=== PATIENT | female | born 2000 | race Caucasian/White ===

== ENCOUNTER 2024-05-30 14:48 | Outpatient (AMB) | payer OTHER, SELFPAY ==
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
[2024-05-30 15:26] VITALS: BP 90/60; PULSE 99; RESP 12; TEMP 36.6; O2SAT 98; BMI 15.7
== END 2024-05-30 16:58 | disposition home or self-care (01) ==
PROVIDERS: PCP Family Medicine; Visit Provider Family Medicine
DX: M54.9 Dorsalgia, unspecified (principal); M25.562 Pain in left knee; M25.551 Pain in right hip; R63.6 Underweight; G47.9 Sleep disorder, unspecified; Z87.828 Personal history of other (healed) physical injury and trauma; F41.8 Other specified anxiety disorders
CPT/HCPCS: 99203

== ENCOUNTER 2024-06-26 16:05 | Outpatient (REF) | payer OTHER, SELFPAY ==
--- NOTE | ~2024-06-26 | XR_ITS ---
EXAMINATION: XR KNEE, LEFT CLINICAL INFORMATION: Left knee pain COMPARISON: None TECHNIQUE: Three views of the left knee. FINDINGS: No fracture or joint effusion. Alignment is anatomic. Joint spaces are maintained. No abnormal soft tissue calcification. XR/XR knee LT 3V IMPRESSION: Normal left knee radiographs. Electronically signed by: Dustin Lizarraga MD 07/10/2024 06:29 PM EDT
== END 2024-06-26 16:06 | disposition home or self-care (01) ==
LOC: HO.XRAY 16:05
PROVIDERS: PCP Family Medicine; Visit Provider Family Medicine
DX: M25.562 Pain in left knee (principal)
CPT/HCPCS: 73562

== ENCOUNTER 2024-06-29 09:54 | Outpatient (REF) | payer OTHER, SELFPAY ==
[2024-06-29 11:46] LABS: MANUAL DIFF FLAG NO
[2024-06-29 12:10] LABS: Basophils Absolute Auto 0.1 X10*3/uL (0.0-0.2); Basophils Percent Auto 0.7 % (0-2); Eosinophils Absolute Auto 0.1 X10*3/uL (0.0-0.4); Eosinophils Percent Auto 1.2 % (0-4); Hematocrit 42.8 % (37.0-47.0); Hemoglobin 14.6 g/dl (12.0-16.0); Imm Gran Abs Auto 0.01 X10*3/uL (0.00-0.03); Imm Gran Pct Auto 0.1 % (0.0-0.4); Lymphocytes Absolute Auto 2.6 X10*3/uL (1.2-4.9); Mean Corpuscular HGB Conc 34.1 g/dl (31.0-35.0); Mean Corpuscular Volume 90.9 fL (80.0-98.0); Mean Platelet Volume 9.7 fL (9.4-12.3); Monocytes Absolute Auto 0.7 X10*3/uL (0.1-1.2); Neutrophils Absolute Auto 3.8 x10*3/uL (2.0-8.3); Platelet Count 239 X10*3/uL (160-400); Red Blood Count 4.71 X10*6/uL (4.20-5.50); Red Cell Distribution Width 12.1 % (11.0-16.0); White Blood Count 7.3 X10*3/uL (4.8-10.8)
[2024-06-29 12:37] LABS: Alanine Aminotransferase 11 U/L (0-31); Albumin Level 4.6 g/dL (3.5-5.0); Alkaline Phosphatase 55 U/L (39-117); Anion Gap 12 (12-20); Aspartate Amino Transferase 19 U/L (5-31); Blood Urea Nitrogen 7 mg/dL (9-16); Calcium 9.5 mg/dL (8.4-10.2); Carbon Dioxide 24 mmol/L (22-29); Chloride 108 mmol/L (96-108); Cholesterol 158 mg/dL (<200); Estimated Glomerular Filt Rate > 60; Glucose Fasting 73 mg/dL (60-99); HDL Cholesterol 59 mg/dL (>40); LDL Cholesterol Calculated 89 mg/dL (<100); Potassium 3.5 mmol/L (3.3-5.1); Sodium 140 mmol/L (135-145); Total Protein 7.6 g/dL (6.5-8.0); Triglycerides 52 mg/dL (<150)
[2024-06-29 12:51] LABS: Erythrocyte Sedimentation Rate 2 MM/HR (0-20)
[2024-06-29 12:58] LABS: Syphilis Screen Nonreactive (Nonreactive)
[2024-06-29 12:59] LABS: TSH reflex Free T4 1.27 uIU/mL (0.32-4.0); Vitamin D 25-OH Total 28.8 ng/mL (>30)
[2024-06-29 13:03] LABS: HBS Num1 10.27 mIU/mL (0-7.99); HBsAGNum1 0.26 S/CO (0.00-0.99); HIV AB/AG Nonreactive (Nonreactive); HIV Num 1 0.05 S/CO (0.00-0.99); Hepatitis B Core Antibody Nonreactive (Nonreactive); Hepatitis B Surface Antigen Negative (Negative); ~HepC Num1 0.16 S/CO (0.00-0.79); ~Hepatitis C Antibody Nonreactive (Nonreactive)
[2024-06-29 13:12] LABS: Folate 15.8 ng/mL (> or = 4.0); Vitamin B12 565 pg/mL (200-900)
[2024-06-29 14:12] LABS: HBS Num2 10.01 mIU/mL (0-7.99); HBS Num3 10.08 mIU/mL (0-7.99); ~Hepatitis B Surface Antibody GRAYZONE (Nonreactive)
[2024-06-29 14:50] LABS: Appearance Urine Clear; Color Urine Yellow; Glucose Urine UA Negative (Negative); Leukocyte Esterase Urine Trace (Negative); Nitrite Urine Negative (Negative); Specific Gravity - Urine 1.015 (1.005-1.025); UMIC TRIGGER UA YES; Urine Blood Negative (Negative); Urine Ketones Trace mg/dL (Negative); Urine Protein Negative (Neg-Trace)
[2024-06-29 14:53] LABS: Bacteria Urine 1+ (None Seen); Hyaline Casts Urine 0-2 /LPF (0-2); RBC Urine 0-2 /HPF (0-2); WBC Urine 0-5 /HPF (0-5)
[2024-06-29 15:53] LABS: Creatinine Urine 93.01 mg/dL; Microalbum/Creatinine Ratio Ur 6.4 ug/mg cr (<30)
[2024-07-02 08:53] LABS: CRP High Sensitivity 0.2 mg/L
== END 2024-06-29 09:55 | disposition home or self-care (01) ==
LOC: HO.WFDLDS 09:54
PROVIDERS: Visit Provider Family Medicine
DX: Z00.00 Encounter for general adult medical examination without abnormal findings (principal); M54.9 Dorsalgia, unspecified; M25.562 Pain in left knee; Z11.3 Encounter for screening for infections with a predominantly sexual mode of transmission; E53.8 Deficiency of other specified B group vitamins; I10 Essential (primary) hypertension; E55.9 Vitamin D deficiency, unspecified
CPT/HCPCS: 36415; 80053; 80061; 81001; 82043; 82306; 82570; 82607; 82746; 84443; 85025; 85652; 86141; 86704; 86706; 86780; 86803; 87340; 87389

== ENCOUNTER 2024-07-19 15:00 | Outpatient (RCR) | payer OTHER, SELFPAY ==
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
--- NOTE | 2024-08-21 09:55 | MHC.PT.DC ---
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 Thank you for your referral.
== END 2024-08-21 09:55 | disposition home or self-care (01) ==
LOC: HO.PT 15:00
PROVIDERS: PCP Family Medicine; Visit Provider Family Medicine
DX: M25.562 Pain in left knee (principal); M25.551 Pain in right hip; M54.9 Dorsalgia, unspecified
CPT/HCPCS: 97110; 97162; 97530; 97535

== ENCOUNTER 2024-10-01 15:22 | Outpatient (AMB) | payer OTHER, SELFPAY ==
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
[2024-10-01 15:28] VITALS: BP 98/68; PULSE 72; RESP 12; O2SAT 99; BMI 16.4
== END 2024-10-01 16:29 | disposition home or self-care (01) ==
PROVIDERS: PCP Family Medicine; Visit Provider Physician Assistant Medical
DX: R07.89 Other chest pain (principal)

== ENCOUNTER → 2024-10-01 15:22 | Outpatient (BNVA) | payer OTHER, SELFPAY | PROVIDERS: PCP Family Medicine; Visit Provider Physician Assistant Medical | DX: R07.89 Other chest pain (principal); G89.29 Other chronic pain; M25.561 Pain in right knee; M25.562 Pain in left knee; M25.551 Pain in right hip; M25.552 Pain in left hip; M54.89 Other dorsalgia | CPT/HCPCS: 93005; 96127; 99212 ==

== ENCOUNTER → 2024-11-01 07:55 | Outpatient (REF) | payer OTHER, SELFPAY ==
--- NOTE | 2024-11-01 07:57 | CA_ITS ---
Transthoracic Echocardiogram Patient (Last, First, Middle): yRann Escobar, Gender: Female Date of : 2000 Age: 24 Procedure Date: 11/01/2024 Procedure Type: Transthoracic Echocardiogram Location: OP Height: 167.64 cm Weight: 45.81 kg BSA: 1.50 m2 Heart Rate: 68 bpm BP: 108 / 65 mmHg Marketing Account Manager: ROOSEVELT Referring MD: Gloria ARAIZA Roll Contour Grinder: Noé Weeks MD Symptoms: R07.9 - Chest pain, unspecified Study Quality: Fair ECG Rhythm: Sinus Conclusions: - Normal study Findings Left Ventricle Normal left ventricular size, thickness, and systolic function. The visually estimated ejection fraction is between 55-60%. Diastolic function is normal for age. Right Ventricle Normal right ventricular cavity size and systolic function. Atria Both atria are normal in size. There is no evidence of interatrial shunt. Aortic Valve Normal aortic valve structure and function. There is no aortic valve stenosis. There is no aortic valve regurgitation. Mitral Valve Normal mitral valve structure and function. There is trace mitral valve regurgitation. There is no mitral valve stenosis. Pulmonic Valve The pulmonic valve is likely normal. Tricuspid Valve Normal tricuspid valve structure. There is trace tricuspid valve regurgitation. The right ventricular systolic pressure is normal. The right ventricular systolic pressure is 14 mmHg. Normal right atrial pressure. There is no evidence of pulmonary hypertension. Great Vessels All visible segments of the aorta are normal in size. The visualized portions of the pulmonary artery and branches are normal. Venous The inferior vena cava is normal in size and collapses greater than 50% with inspiration. Pericardium/Pleural There is no evidence of pericardial effusion. Prior Study Comparison No prior study available for comparison. Measurements 2D Linear Measurements IVSd: 0.62 0.6-0.9/0.6-1.0 cm LVIDd: 4.26 3.9-5.3/4.2-5.9 cm LVIDd Index: 2.84 2.4-3.2/2.2-3.1 cm/m2 LVIDs: 2.63 2.0-3.6 cm LVPWd: 0.57 0.7-1.1 cm LA Diam: 2.40 2.7-3.8/3.0-4.0 cm LAIDs Index: 1.60 1.5-2.3 cm/m2 LV Mass: 87.67 67-162/88-224 g LV Mass Index: 58.45 43-95/49-115 g/m2 LVOT Diam: 1.80 3.0+(-)1.3 cm 2D Systolic Function EF 4C: 61.70 >55% EF 2C: 55.60 >55% EF BiP: 58.90 >55% Mitral Valve MV Pk E: 0.77 MV PK A: 0.51 MV Decel Time: 144.00 E/A: 1.50 E'Lateral: 14.30 E'Medial: 10.70 E/E' Med: 7.20 E/E' Lat: 5.40 PHT: 42.00 MVA PHT: 5.24 Decel Panola: 5.31 Aortic Valve AoV Pk Kristopher: 1.13 AoV Mn Kristopher: 0.79 AoV VTI: 0.23 AoV Pk Grad: 5.00 Aov Mn Grad: 3.00 EKATERINA Cont.VTI: 2.36 LVOT LVOT Pk Kristopher: 0.98 LVOT Mn Kristopher: 0.69 LVOT VTI: 0.21 LVOT Pk Grad: 4.00 LVOT Mn Grad: 2.00 LVOT Diam: 1.80 LVOT Area: 2.54 Diastolic Function MV Pk E: 0.77 MV Pk A: 0.51 E/A: 1.50 E'Medial: 10.70 E/E' Med: 7.20 E' Laterial: 14.30 E/E' Lat: 5.40 Right Ventricle TAPSE (mm): 15.90 TVS' Kristopher: 9.46 Tricuspid Valve TR Pk Kristopher: 1.66 TR Pk Grad: 11.00 RA Press: 3.00 RVSP: 14.00 Great Vessels Aorta Sinus of Valsalva: 2.90 2.0-3.5 cm Ao Asc: 2.50 2.1-3.4 cm Pulmonary Valve PV Pk Kristopher: 0.96 Peak PV Grad: 4.00 Updated in Other Vendor System with Status of Final Noé Weeks MD electronically signed on 11/02/2024 10:16:05 AM with status of Final
--- NOTE | 2024-11-01 07:57 | CA_ITS ---
Acquisition Time: 2024-11-01 08:46:36 Total Exercise Time: 00:07:32 Test Indications: CP Medications: Protocol: DEDE Max HR: 173 BPM 87% of Pred: 198 BPM Max BP: 110/64 mmHG Max Work Load: 9.3 METS Exercise Stress Test with exercise 7 mins 32 secs of Dede Protocol, achieving 88% MPHR, with reports of mild SOB, no chest discomfort, without any arrythmias, with normotensive response to exercise. Without EKG chnages meeting criteria for ischemia. In recovery, breathing quickly returned to baseline. Test reviewed with Dr. Polanco. Referred By: Gloria Mccarty Electronically Signed By: Cade Giles
== END ==
LOC: HO.CARD 07:55
PROVIDERS: PCP Physician Assistant Medical; Visit Provider Physician Assistant Medical
DX: R07.9 Chest pain, unspecified (principal)
CPT/HCPCS: 93017; 93306

== ENCOUNTER → 2024-11-01 07:57 | Outpatient (BNV) | payer OTHER, SELFPAY | PROVIDERS: PCP Physician Assistant Medical | DX: R06.02 Shortness of breath (principal) | CPT/HCPCS: 93016; 93018; 93320; 93350 ==

== ENCOUNTER 2024-11-16 09:12 | Outpatient (REF) | payer OTHER, SELFPAY ==
--- NOTE | ~2024-11-16 | XR_ITS ---
EXAMINATION: XR THORACIC SPINE CLINICAL INFORMATION: M54.9 - Dorsalgia, unspecified COMPARISON: None available. TECHNIQUE: 3 views of the thoracic spine were obtained. FINDINGS: There is a very mild right convex thoracic scoliosis, apex at T6. There is normal kyphosis. There is normal mineralization. There is normal alignment without subluxation. No fractures, compression deformities, or suspicious bone lesions. Disc spaces are preserved. Facets are normally aligned without arthritic change. Remainder of the bony and soft tissue structures included in the imaging appear normal. XR/XR thoracic spine 2V IMPRESSION: Aside from a very mild right convex scoliosis, apex at T6, the exam is otherwise normal. Electronically signed by: Dustin Zamora MD 11/16/2024 09:57 AM [facility]
--- NOTE | ~2024-11-16 | XR_ITS ---
EXAMINATION: XR HIP, LEFT CLINICAL INFORMATION: Left hip pain. COMPARISON: None available. TECHNIQUE: Two views of the left hip. FINDINGS: No fracture. Alignment is anatomic. Hip joint space is maintained. Acetabular coverage is normal. Soft tissues are unremarkable. XR/XR hip LT min 2V IMPRESSION: Normal left hip. Electronically signed by: Dustin Zamora MD 11/16/2024 09:54 AM [facility] [place]
--- NOTE | ~2024-11-16 | XR_ITS ---
EXAMINATION: XR LUMBOSACRAL SPINE CLINICAL INFORMATION: M54.9 - Dorsalgia, unspecified COMPARISON: None available. TECHNIQUE: Three views of the lumbosacral spine. FINDINGS: The vertebral bodies and posterior elements are normal. The disc spaces are preserved and the vertebral alignment is normal. Minimal narrowing of L5-S1 disc space, probably congenital. Facets are normally aligned and appear normal. There are no soft tissue abnormalities. XR/XR lumbar spine 2-3V IMPRESSION: Essentially normal exam. Electronically signed by: Dustin Zamora MD 11/16/2024 09:59 AM [facility] [place]
--- NOTE | ~2024-11-16 | XR_ITS ---
EXAMINATION: XR KNEE 1-2 VIEWS RIGHT HISTORY: Right knee pain. COMPARISON: There are no prior studies available for comparison. FINDINGS: AP and lateral views of the right knee are submitted. Osseous mineralization is normal. There is no fracture or dislocation. The joint spaces are preserved. The soft tissues are unremarkable. There is no joint effusion. XR/XR knee RT 2V IMPRESSION: Unremarkable examination of the right knee. Electronically signed by: Lee Lindo MD 11/16/2024 09:58 AM [facility]
--- NOTE | ~2024-11-16 | XR_ITS ---
EXAMINATION: XR HIP, RIGHT CLINICAL INFORMATION: Right hip pain. COMPARISON: None available. TECHNIQUE: Two views of the right hip. FINDINGS: No fracture. Alignment is anatomic. Hip joint space is maintained. Acetabular coverage is normal. Soft tissues are unremarkable. XR/XR hip RT min 2V IMPRESSION: Normal right hip. Electronically signed by: Dustin Zamora MD 11/16/2024 09:56 AM [facility] [place]
[2024-11-16 11:27] LABS: Rheumatoid Factor < 13.0 IU/mL (<15.0)
[2024-11-17 23:09] LABS: Hepatitis B Surface Ab Qnt 10 mIU/mL (> OR = 10)
[2024-11-19 22:47] LABS: Lyme Abs Screen <0.90 index
[2024-11-22 14:09] LABS: Anti Nuclear Antibody Screen NEGATIVE (NEGATIVE)
== END 2024-11-16 09:13 | disposition home or self-care (01) ==
LOC: HO.HMGCX 09:12
PROVIDERS: PCP Physician Assistant Medical; Visit Provider Physician Assistant Medical
DX: M54.9 Dorsalgia, unspecified (principal); M25.561 Pain in right knee; M25.562 Pain in left knee; M25.551 Pain in right hip; M25.552 Pain in left hip; Z01.84 Encounter for antibody response examination
CPT/HCPCS: 36415; 72070; 72100; 73502; 73560; 86038; 86317; 86431; 86617; 86618

== ENCOUNTER → 2024-11-16 09:26 | Outpatient (BNV) | payer OTHER, SELFPAY | PROVIDERS: PCP Physician Assistant Medical; Visit Provider Radiology Diagnostic Radiology | DX: M25.552 Pain in left hip (principal); M25.551 Pain in right hip; M54.9 Dorsalgia, unspecified; M25.561 Pain in right knee | CPT/HCPCS: 72070; 72100; 73502; 73560 ==

== ENCOUNTER 2024-12-06 15:17 | Outpatient (AMB) | payer OTHER, SELFPAY ==
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
[2024-12-06 15:37] VITALS: BP 98/66; PULSE 58; RESP 12; TEMP 36.2; O2SAT 100; BMI 16.5
== END 2024-12-06 16:11 | disposition home or self-care (01) ==
PROVIDERS: PCP Family Medicine; Visit Provider Physician Assistant Medical
DX: R07.89 Other chest pain (principal); M25.561 Pain in right knee; M25.562 Pain in left knee; G89.29 Other chronic pain; M25.551 Pain in right hip; M25.552 Pain in left hip; M54.89 Other dorsalgia

== ENCOUNTER → 2024-12-06 15:17 | Outpatient (BNVA) | payer OTHER, SELFPAY | PROVIDERS: PCP Family Medicine; Visit Provider Physician Assistant Medical | DX: R07.89 Other chest pain (principal); M25.561 Pain in right knee; M25.562 Pain in left knee; G89.29 Other chronic pain; M54.89 Other dorsalgia | CPT/HCPCS: 96127; 99212 ==

== ENCOUNTER 2024-12-31 14:54 | Outpatient (AMB) | payer OTHER, SELFPAY ==
--- NOTE | 2024-12-31 15:10 | MHC.PC.OV ---
Vital Signs 12/31/24 15:11 Height 5 ft 6 in Weight 101 lb BMI 16.3 BP 86/64 L Blood Pressure Location Lt brachial Position Sitting Respiration 12 Pulse 71 Pulse Source Pulse Oximeter Temp 98.7 F Temp Source Oral Pulse Oximetry (%) 98 Oxygen Delivery Method Room Air Intake Visit Reasons: Stomach pain Intake Note: Stomche pain a couple times a weeks. Noticed it happened after consuming milk, burger thao, spicy foods. Translator Deaf Required: No Allergies No Known Allergies Allergy (Verified 12/31/24 15:11) Tobacco use date assessed: 12/06/24 Dental Screening Dental Screen Date: 12/06/24 HPI HPI Comments History of Present Illness Details This is a 24-year-old female with a past medical history of difficulty sleeping, low weight, vitamin-D deficiency, chronic pain and depression with anxiety presenting for stomach problems. The symptoms began 2 or 3 weeks ago. She endorses intermittent pain across the middle, upper right and upper left abdomen characterized as severe pain and cramping that occurs a little while after eating or drinking. She has not identified a specific trigger yet. It happened 1 day after she drank whole milk so she switched to oat milk, but it is still happening. It also happened 1 day after she ate a chicken sandwich. The pain lasts several hours sometimes, and it always goes away after she has a bowel movement which is sometimes loose and sometimes formed. She gets nauseous sometimes but does not vomit. No fevers, chills or skin rashes. Denies acid reflux or weight loss. Denies similar episodes in the past. ROS: Constitutional: No unexplained weight loss, fever, chills, fatigue or night sweats. Respiratory: No shortness of breath Cardiovascular: No chest pain Gastrointestinal: No persistent diarrhea, blood in stools, acid reflux. See HPI Genitourinary: No dysuria, hematuria, urinary frequency. Neurologic: No headache, dizziness, syncope Skin: No rash or itching. Physical exam: Constitutional: Alert, in no distress. Neck: Supple, Full range of motion. No lymphadenopathy Respiratory: Clear to auscultation. Cardiovascular: S1 S2 regular. No murmurs. Gastrointestinal: Abdomen soft, non-tender, non-distended. Normal bowel sounds. No palpable masses. No rebound or guarding. Genitourinary: No costovertebral angle tenderness. Skin: No rashes or discoloration Psychiatric: Normal mood and affect [facility] Medical History (Updated 12/31/24 @ 15:41 by JOSE G Emmanuel) Abdominal pain Low vitamin D level Chest pain Bilateral knee pain Bilateral hip pain OCD (obsessive compulsive disorder) PTSD (post-traumatic stress disorder) Depression Anxiety Family History (Updated 05/30/24 @ 15:49 by JACQUI Thomas) Mother FH: mental illness Substance abuse Asthma High cholesterol Psychiatric illness Father FH: mental illness Substance abuse Psychiatric illness Brother FH: mental illness Substance abuse Asthma Psychiatric illness Maternal Aunt FH: mental illness Substance abuse Maternal Uncle FH: mental illness Substance abuse Maternal Grandmother Substance abuse Asthma AA (alcohol abuse) Social History (Updated 05/30/24 @ 15:19 by JACQUI Thomas) Housing: House Patient Tobacco Use Status: Never used Tobacco e-Cigarette/Vaping Use: Former Use Substance Use Type: Marijuana service: No Current occupational status: employed 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 Current occupational exposures/hazards: Yes Cognitive needs: No Hearing needs: No Vision needs: No Questionnaire Thrive Questionnaire Date Thrive assessed: 12/06/24 I am a: Patient What is your living situation today?: I have a steady place to live Within the past 12 months, did the food you bought not last and you didn't have the money to get more?: Sometimes True Within the past 12 months, did you worry whether your food would run out before you got money to buy more?: Sometimes True Do you have trouble paying for medicines?: Yes Do you have trouble getting transportation to medical appointments?: No Do you have trouble paying your heating and electricity bill?: No Do you have trouble taking care of your child, family member or friend?: No Do you have trouble with day-to-day activities such as bathing, preparing meals, shopping, managing finances, etc.?: No Are you currently unemployed and looking for a job?: No Are you interested in more education?: Yes Currently or been in a relationship where the following occur: No concerns reported THRIVE Score: 2 BIANCA-7 AMB Questionnaire BIANCA-7 Date BIANCA - 7 assessed: 12/06/24 Source: Developed by Drs. Lee Quiroz, Lizzette Broderick, Thomas Enriquez and colleagues, with an educational kelly from [employer]. Physical exam (Primary Care) Vital Signs: Last Vital Signs Temp 98.7 F 12/31/24 15:11 Pulse 71 12/31/24 15:11 Resp 12 12/31/24 15:11 BP 86/64 L 12/31/24 15:11 Pulse Ox 98 12/31/24 15:11 Oxygen Delivery Method Room Air 12/31/24 15:11 BMI result Body Mass Index 16.3 Tobacco/Smoking Status: Tobacco use Status Tobacco use date assessed 12/06/24 12/31/24 15:14 Patient Tobacco Use Status Never used Tobacco 12/31/24 15:14 e-Cigarette/Vaping Use Former Use 12/31/24 15:14 Thrive Assessment: Date of Thrive Assessment Date Thrive assessed 12/06/24 12/31/24 15:14 Currently or been in a relationship where the following occur: No concerns reported Coding Level of Care Code Est Pt Level 4 (13472) Complex EM visit Add On G2211 Diagnoses Pain of upper abdomen R10.10 Abdominal location: upper abdomen, unspecified Assessment & Plan Assessment & Plan (1) Abdominal pain: Code(s): R10.9 - Unspecified abdominal pain Category: Medical Qualifiers: Abdominal location: upper abdomen, unspecified Qualified Code(s): R10.10 - Upper abdominal pain, unspecified Plan Urine dip with leuks and protein. Send UA and culture. Urine HCG negative today. Differential includes IBS, gastritis, cholelithiasis, Helicobacter pylori infection, celiac, lactose intolerance among other etiologies. Abdominal exam benign today. Patient well-appearing. No evidence of infection. Proceed with serologic tests, ultrasound and stool testing for H pylori. Recommend probiotic and keeping a food journal to record symptoms. Warning signs warranting ER evaluation reviewed. Follow up in 4 weeks for re-evaluation. Orders: Orders Comprehensive Met. Panel Today R10.9 - Unspecified abdominal pain Immunoglobulin A Today R10.9 - Unspecified abdominal pain Urine Culture Today R10.10 - Upper abdominal pain, unspecified, R39.9 - Unspecified symptoms and signs involving the genitourinary system AMB Urinalysis Dipstick Today Z13.9 - Encounter for screening, unspecified AMB HCG Urine Test Today R10.9 - Unspecified abdominal pain Lipase Today R10.9 - Unspecified abdominal pain Amylase Today R10.9 - Unspecified abdominal pain Complete Blood Count Auto Diff Today R10.9 - Unspecified abdominal pain TSH reflex Free T4 Today R10.9 - Unspecified abdominal pain Endomysial IgA rflx Titer Today R10.9 - Unspecified abdominal pain Transglutaminase Ab IgG Today R10.9 - Unspecified abdominal pain H pylori Ag Stool Today R10.9 - Unspecified abdominal pain US abdomen complete Today R10.9 - Unspecified abdominal pain UA w Microscopic Today R10.10 - Upper abdominal pain, unspecified, R39.9 - Unspecified symptoms and signs involving the genitourinary system Medications: New Lactobac. rhamnosus GG-inulin 10 billion cell -200 mg ([employer]) 1 cap PO DAILY 60 caps 0RF
[2024-12-31 15:11] VITALS: BP 86/64; PULSE 71; RESP 12; TEMP 37.1; O2SAT 98; BMI 16.3
== END 2024-12-31 15:54 | disposition home or self-care (01) ==
LOC: HO.HMCFM 14:55
PROVIDERS: PCP Family Medicine; Visit Provider Physician Assistant Medical
DX: Z13.9 Encounter for screening, unspecified (principal); R10.9 Unspecified abdominal pain; R10.10 Upper abdominal pain, unspecified

== ENCOUNTER 2024-12-31 14:54 | Outpatient (REF) | payer OTHER, SELFPAY ==
[2024-12-31 18:27] LABS: Appearance Urine Turbid; Color Urine Dark Yellow; Glucose Urine UA Negative (Negative); Leukocyte Esterase Urine Small (1+) (Negative); Nitrite Urine Negative (Negative); PH 5.5 (5.0-9.0); Specific Gravity - Urine >= 1.030 (1.005-1.025); UMIC TRIGGER UA YES; Urine Blood Negative (Negative); Urine Ketones Trace mg/dL (Negative); Urine Protein 30 (1+) mg/dL (Neg-Trace)
[2024-12-31 18:32] LABS: Bacteria Urine 4+ (None Seen); Hyaline Casts Urine 0-2 /LPF (0-2); RBC Urine 0-2 /HPF (0-2)
== END 2024-12-31 14:55 | disposition home or self-care (01) ==
LOC: HO.LNP 14:54
PROVIDERS: PCP Family Medicine; Visit Provider Physician Assistant Medical
DX: R10.10 Upper abdominal pain, unspecified (principal); R39.9 Unspecified symptoms and signs involving the genitourinary system
CPT/HCPCS: 81001; 81002; 81025; 87086; 99212

== ENCOUNTER 2025-01-21 09:53 | Outpatient (REF) | payer OTHER, SELFPAY ==
--- NOTE | ~2025-01-21 | US_ITS ---
CLINICAL HISTORY: R10.9 - Unspecified abdominal pain US ABDOMEN COMPLETE Comparison: None Findings: The visualized portions of the pancreas appear unremarkable. The visualized segments of the IVC and abdominal aorta are normal in caliber. The liver is normal in size and echotexture. There is no intrahepatic bile duct dilatation. The common bile duct measures 5.1 mm. The gallbladder is normal. There is no sonographic Carreno sign. The main portal vein is antegrade. The right kidney measures 10.5 cm in length. The left kidney measures 12.0 cm in length The spleen is normal. No ascites. IMPRESSION: 1. No cholelithiasis or acute cholecystitis. 2. No biliary ductal dilatation. 3. No hydronephrosis. This document has been electronically signed by: Lesa Dumont DO on 01/21/2025 15:37:26
[2025-01-21 13:03] LABS: MANUAL DIFF FLAG NO
[2025-01-21 13:14] LABS: Basophils Percent Auto 0.4 % (0-2); Eosinophils Absolute Auto 0.1 X10*3/uL (0.0-0.4); Eosinophils Percent Auto 1.2 % (0-4); Hematocrit 41.2 % (37.0-47.0); Hemoglobin 14.3 g/dl (12.0-16.0); Imm Gran Abs Auto 0.01 X10*3/uL (0.00-0.03); Imm Gran Pct Auto 0.2 % (0.0-0.4); Lymphocytes Absolute Auto 2.3 X10*3/uL (1.2-4.9); Lymphocytes Percent Auto 46.3 % (20-40); Mean Corpuscular HGB Conc 34.7 g/dl (31.0-35.0); Mean Corpuscular Volume 89.4 fL (80.0-98.0); Mean Platelet Volume 9.9 fL (9.4-12.3); Monocytes Absolute Auto 0.4 X10*3/uL (0.1-1.2); Monocytes Percent Auto 7.5 % (2-11); Neutrophils Absolute Auto 2.2 x10*3/uL (2.0-8.3); Neutrophils Percent Auto 44.4 % (45-73); Platelet Count 219 X10*3/uL (160-400); Red Blood Count 4.61 X10*6/uL (4.20-5.50); Red Cell Distribution Width 12.2 % (11.0-16.0)
[2025-01-21 13:23] LABS: Appearance Urine Clear; Color Urine Yellow; Glucose Urine UA Negative (Negative); Leukocyte Esterase Urine Negative (Negative); Nitrite Urine Negative (Negative); PH 7.5 (5.0-9.0); Urine Blood Negative (Negative); Urine Ketones Negative (Negative); Urine Protein Negative (Neg-Trace)
[2025-01-21 13:29] LABS: Bacteria Urine 1+ (None Seen); Hyaline Casts Urine 0-2 /LPF (0-2); RBC Urine 0-2 /HPF (0-2); WBC Urine 0-5 /HPF (0-5)
[2025-01-21 14:02] LABS: Alanine Aminotransferase 11 U/L (0-31); Albumin Level 4.5 g/dL (3.5-5.0); Alkaline Phosphatase 53 U/L (39-117); Amylase 61 U/L (28-100); Anion Gap 9 (12-20); Aspartate Amino Transferase 25 U/L (5-31); Bilirubin Total 0.6 mg/dL (0.0-1.0); Blood Urea Nitrogen 12 mg/dL (9-16); Calcium 9.3 mg/dL (8.4-10.2); Carbon Dioxide 25 mmol/L (22-29); Chloride 110 mmol/L (96-108); Estimated Glomerular Filt Rate > 60; Glucose Random 83 mg/dL (60-115); Lipase 28 U/L (8-78); Potassium 3.8 mmol/L (3.3-5.1); Sodium 140 mmol/L (135-145); TSH reflex Free T4 1.27 uIU/mL (0.32-4.0); Total Protein 7.3 g/dL (6.5-8.0)
[2025-01-22 10:23] LABS: Immunoglobulin A 219 mg/dL (47-310)
[2025-01-22 22:44] LABS: Transglutaminase Ab IgG <1.0 U/mL
[2025-01-26 23:23] LABS: Endomysial IgA Antibody Negative (Negative)
== END 2025-01-21 09:54 | disposition home or self-care (01) ==
LOC: HO.HMGCX 09:53
PROVIDERS: PCP Physician Assistant Medical; Visit Provider Physician Assistant Medical
DX: R39.9 Unspecified symptoms and signs involving the genitourinary system (principal); R80.9 Proteinuria, unspecified; R10.9 Unspecified abdominal pain
CPT/HCPCS: 36415; 76700; 80053; 81001; 82150; 82784; 83690; 84443; 85025; 86231; 86364; 87086

== ENCOUNTER → 2025-01-21 09:59 | Outpatient (BNV) | payer OTHER, SELFPAY | PROVIDERS: PCP Physician Assistant Medical; Visit Provider Radiology Diagnostic Radiology | DX: R10.9 Unspecified abdominal pain (principal) | CPT/HCPCS: 76700 ==

== ENCOUNTER 2025-01-25 08:39 | Outpatient (REF) | payer SELFPAY | END 2025-01-25 08:40 | disposition home or self-care (01) | LOC: HO.HMGCLNP 08:39 | PROVIDERS: Visit Provider Physician Assistant Medical | DX: R10.9 Unspecified abdominal pain (principal) | CPT/HCPCS: 87338 ==